=== PATIENT | male | born 1960 | race Caucasian/White ===

== ENCOUNTER 2022-08-23 18:38 | Emergency (ER) | payer SELFPAY ==
[~2022-08-23] VITALS: Ht 165.1 cm; Wt 79.4 kg
[2022-08-23 18:45] VITALS: BP_SYST 131
--- NOTE | 2022-08-23 19:07 | NUR ---
PATIENT AMBULATED TO AND FROM RESTROOM WITHOUT DIFFICULTY. EATING DINNER IN CHAIR NOW.
--- NOTE | 2022-08-23 19:15 | NUR ---
REPORT RECIEVED FROM PABLO CORREA. PER DR. SANTO, SPOKE TO AND SHE IS ON THE WAY FROM HOME FOR PICK-UP.
--- NOTE | 2022-08-23 19:22 | NUR ---
Patient does not wish to proceed with medical care recommended by DR. SANTO. Patient given information related to possible complications, up to and including , which could occur as a result of leaving hospital at this time. Patient verbalizes understanding of risks involved leaving against medical advice. Patient has signed AMA form. AND PATIENT SIGNED AMA FORM. STATES WILL TAKE PATIENT HOME.
== END 2022-08-23 19:21 | disposition left against medical advice (07) ==
LOC: SED 18:38
DX: F19.10 Other psychoactive substance abuse, uncomplicated (principal); Z79.899 Other long term (current) drug therapy
CPT/HCPCS: 99283